=== PATIENT | female | born 1945 | race Two or more races ===

== ENCOUNTER 2025-04-22 05:52 | Inpatient (IN) | payer MEDICARE, OTHER ==
[~2025-04-22] VITALS: Ht 167.6 cm; Wt 50.8 kg
--- NOTE | 2025-04-22 06:01 | ECG ---
[facility] Test Date: 2025-04-22 Test Time: 05:53:00 Pat Name: FIDE BRIDGES Department: [facility] ED Patient ID: [id number] Room: 0249 Gender: F Top Installer: LUISA : 1945 Requested By: EMERGENCY EMERGENCY Order Number: [id number] Reading MD: Brian Chaudhry Measurements Intervals [place] Rate: 64 P: 36 OR: 210 QRS: -47 QRSD: 131 T: 74 QT: 449 QTc: 464 Interpretive Statements Sinus rhythm Left bundle branch block Electronically Signed On 04-25-2025 18:12:43 PDT by Brian Chaudhry Please click the below link to view image of tracing.
--- NOTE | 2025-04-22 06:29 | ED.PDOC ---
GI ASSESSMENT HPI Comments 80 year old female presents to the ED via EMS with a chief complaint of nausea/vomiting onset last night around 22:00. Per EMS, patient began experiencing nausea/vomiting last night around 22:00, as well as abdominal pain and distention. Patient states abdominal pain has slightly improved, was given Zofran 4 mg in route to ED by EMS with no improvement of nausea. PMHx HTN, HLD, GERD, CHF. Denies chest pain, diarrhea, constipation, dizziness, headache, fever, chills, dysuria, hematuria, hematemesis. No other symptoms or modifying factors present at this time. Chief Complaint: Abdominal Pain Time Seen by MD: 06:10 Reviewed Notes: Medications, Allergies Allergies: Coded Allergies: Codeine (Verified Allergy, Unknown, 04/22/25) Information Source: Patient, Emergency Med Personnel Mode of Arrival: EMS Timing: Hours Duration: Since onset Prehospital treatment: Other (Zofran 4mg ) Quality: Sharp Severity: Moderate Recent: None Recent Hx of: None Pain Location: Diffuse Modifying Factors: Nothing Associated sign and symptoms: Nausea, Vomiting, Abdominal Pain Past Medical History PAST MEDICAL HISTORY: CHF, GERD, High Lipids, HTN Surgical History: Appendectomy, Cholecystectomy CRAFT SUPERINTENDENT History: No Pertinent CRAFT SUPERINTENDENT History Family History Family History: Reviewed,noncontributory to illness, No family hx of Cancer, No family hx of DM, No family hx of Heart nicholas, No family hx of HTN, No family hx ofKidney nicholas, No family hx of Liver nicholas, No family hx of Lung nicholas, No family hx of Stroke Social History Smoker: Non-Smoker Alcohol: Denies ETOH Use Drugs: Denies Drug Use Lives In: Home Constitutional: denies: chills, diaphoresis, fatigue, fever, malaise, sweats, weakness, others EENTM: denies: blurred vision, double vision, ear bleeding, ear discharge, ear drainage, ear pain, ear ringing, eye pain, eye redness, hearing loss, mouth pain, mouth swelling, nasal discharge, nose bleeding, nose congestion, nose pain, photophobia, tearing, throat pain, throat swelling, voice changes, others Respiratory: denies: cough, hemoptysis, orthopnea, SOB at rest, shortness of breath, SOB with excertion, stridor, wheezing, others Cardiovascular: denies: chest pain, dizzy spells, diaphoresis, Dyspnea on exertion, edema, irregular heart beat, left arm pain, lightheadedness, palpitations, PND, syncope, others Gastrointestinal: reports: abdomen distended, abdominal pain, nausea, vomiting; denies: blood streaked bowels, constipated, diarrhea, dysphagia, difficulty swallowing, hematemesis, melena, poor appetite, poor fluid intake, rectal bleeding, rectal pain, others Genitourinary: denies: abnormal vagina bleeding, burning, dyspareunia, dysuria, flank pain, frequency, hematuria, incontinence, pain, , vagina discharge, urgency, others Neurological: denies: dizziness, fainting, headache, left sided numbness, left sided weakness, numbness, paresthesia, pre-existing deficit, right sided numbness, right sided weakness, seizure, speech problems, tingling, tremors, weakness, others Musculoskeletal: denies: back pain, gout, joint pain, joint swelling, muscle pain, muscle stiffness, neck pain, others Integumetry: denies: bruises, change in color, change in hair/nails, dryness, laceration, lesions, lumps, rash, wounds, others Allergic/Immunocompromised: denies: Difficulty Healing, Frequent Infections, H noel, Itching, others Hematologic/Lymphatic: denies: anemia, blood clots, easy bleeding, easy bruising, swollen glands, others Endocrine: denies: excessive hunger, excessive sweating, excessive thirst, excessive urination, flushing, intolerance to cold, intolerance to heat, unexplained weight gain, unexplained weight loss, others Psychiatric: denies: anxiety, bipolar disorder, depression, hopeless, panic disorder, schizophrenia, sleepless, suicidal, others All Other Systems: Reviewed and Negative Physical Exam General Appearance: Moderate Distress, Normal HEENT: Normal ENT Inspection, Pharynx Normal, TMs Normal Neck: Full Range of Motion, Non-Tender, Normal, Normal Inspection Respiratory: Chest Non-Tender, Lungs Clear, No Accessory Muscle Use, No Respiratory Distress, Normal Breath Sounds Cardiovascular: No Edema, No JVD, No Murmur, No Gallop, Normal Peripheral Pulses, Regular Rate/Rhythm Breast Exam: Deferred Gastrointestinal: Distended, No Organomegaly, No Pulsatile Mass, Normal Bowel Sounds, Soft Genitalia: Deferred Pelvic: Deferred Rectal: Deferred Extremities: No calf tenderness, Normal capillary refill, Normal inspection, Normal range of motion, Non-tender, No pedal edema Musculoskeletal : Apperance: Normal Neurologic: Alert, executive asst II-XII nml as Tested, No Motor Deficits, Normal Affect, Normal Mood, No Sensory Deficits Cerebellar Function: NOT DONE Reflexes: NOT DONE Skin: Dry, Normal Color, Warm Peripheral Pulses: 3+ Radial (R), 3+ Radial (L) Lymphatic: No Adenopathy Was a procedure done? Was a procedure done?: No GI differential Dx Differential Diagnosis: Constipation, Diverticular disease, Esophagitis, Gastritis/PUD, Gastroenteritis X-Ray, Labs, Meds, VS Vital Signs Date Time Temp Pulse Resp B/P (MAP) Pulse Ox O2 Delivery O2 Flow Rate FiO2 04/22/25 06:36 74 16 /64 04/22/25 05:53 64 04/22/25 05:52 98.5 65 16 98 98.5 Lab Test 04/22/25 06:25 Range/Units Urine Color Dayanara H Yellow Urine Clarity Ex.turbid Clear Urine pH 5.5 5.0-9.0 Urine Specific [place] 1.020 1.001-1.035 Urine Protein 2+ H Negative Urine Ketones Negative Negative Urine Blood 2+ H Negative /uL Urine Nitrite Negative Negative Urine Bilirubin Negative Negative Urine Urobilinogen Normal Negative mg/dL Urine Leukocyte Esterase 2+ Negative /uL Urine RBC 95 0 - 4 /hpf Urine WBC Clumps Present None Seen /hpf Urine Microscopic WBC 2356 H 0-5 /HPF Urine Squamous Epithelial Cells Few <5 /hpf Urine Bacteria Few H None Seen /hpf Urine Glucose Trace Normal mg/dL Current Medications Medications (Trade) Dose Ordered Sig/Candida Route Start Time Stop Time Status Last Admin Ondansetron HCl (Zofran) 4 mg ONCE ONCE IV 04/22/25 06:45 04/22/25 06:46 DC 04/22/25 06:46 Patient alert. Complaining of abdominal pain. Sepsis from urine. Establish intravenous access. Was given fluids. Was given Rocephin. Reviewed her history. Explained to the patient. Continue monitoring. Time of 1ST Reevaluation: 06:40 Reevaluation 1ST: Unchanged Patient Education/Counseling: Diagnosis, Treatment, Prognosis Family Education/Counseling: No Family Present Additional Information The following tests were ordered, and results were reviewed by me: EKG, CBC, UA, BMP Additional Information was gathered from interviewing the following independent historians: EMS I reviewed and agreed with the following test results read by other providers: I discussed treatment and results with medical personnel and: patient Comprehensive systems review obtained and negative except for what is stated in the HPI. SEPSIS Sepsis Screen Date sepsis recognized/suspect: Apr 22, 2025 Time Sepsis recognized/suspect: 0552 Recent Procedure: No On Antibiotic Therapy: No Respiratory Rate >20: No Heart Rate >90: No Temp<36 C (96.8 F) or >38.3 C: No SBP <90 or MAP <65 mmHG: No New Acute Mental Status Change: No Is the patient on CPAP, BIPAP,: No Physician Orders Complete Blood Count (04/22/25 06:31) Basic Metabolic Panel (04/22/25 06:31) Vital Signs Date Time Temp Pulse Resp B/P (MAP) Pulse Ox O2 Delivery O2 Flow Rate FiO2 04/22/25 06:36 74 16 91/64 04/22/25 05:53 64 04/22/25 05:52 98.5 65 16 91/64 98 98.5 Medications Medications Dose Ordered Sig/Candida Route Start Time Stop Time Status Last Admin Dose Admin Ondansetron HCl 4 mg ONCE ONCE IV 04/22/25 06:45 04/22/25 06:46 DC 04/22/25 06:46 Departure 1 Departure Time of Disposition: 07:21 Impression: Primary Impression: Sepsis due to urinary tract infection Disposition: ADMITTED INPATIENT Admit to: Med Surg Condition: Guarded Critical Care Note Critical Care Time?: Yes (90 min-critical care time only) Stability Stability form required: No Heart Score Heart Score: Heart Score Response (Comments) Value History N/A 0 EKG N/A 0 Age N/A 0 Risk Factors N/A 0 Troponin N/A 0 Total 0 I personally scribed for LITA LOPEZ MD ([email or web address]) on 04/22/25 at 06:29. Electronically submitted by Paz Cheung ([email or web address]). I personally scribed for LITA LOPEZ MD ([email or web address]) on 04/22/25 at 07:15. Electronically submitted by Paz Cheung ([email or web address]). LITA LOPEZ MD Apr 22, 2025 06:29
[2025-04-22] MEDS: MORPHINE SULFATE 4 MG/ML SYR/VIAL IV ONE (06:36)
[2025-04-22] MEDS: ONDANSETRON HCL 4 MG/2 ML VIAL IV ONE (06:46)
[2025-04-22 06:55] LABS: Urine Protein, UAD 2+ (Negative); Urine WBC Clumps PRESENT /hpf (None Seen)
[2025-04-22] MEDS: SODIUM CHLORIDE 0.9% 1,000 ML IV ONE ×2 (07:30)
[2025-04-22 08:04] LABS: Anion Gap 10 (5-15); Calcium 10.3 mg/dL (8.7-10.4); Carbon Dioxide 22 mmol/L (20-31); Potassium 4.9 mmol/L (3.5-5.1)
[2025-04-22 08:06] LABS: Hematocrit 37.9 % (36.0-46.0); Hemoglobin 12.6 g/dL (12.2-16.2); Mean Corpuscular Hemoglobin 29.5 pg (28.0-32.0); Mean Corpuscular Volume 88.4 fL (80.0-100.0); Nucleated Red Blood Cells % 0.0 %
[2025-04-22 08:10] LABS: BUN/Creatinine Ratio 13.2 (10.0-20.0); Blood Urea Nitrogen 33 mg/dL (9-23); Chloride 94 mmol/L (98-107); Glucose 236 mg/dL (74-106); Sodium 126 mmol/L (136-145)
--- NOTE | 2025-04-22 08:21 | DVH ---
Exam: CT CT AB PEL WO CON-NO ORAL OR IV History: colitiscystitis Comparison Study: None Technique: Multidetector spiral CT of the abdomen was performed from lung bases to pubic symphysis. I maging was performed without IV contrast. Axial, coronal and sagittal multiplanar reformats were obta ined from the axial data set by the technologist. Radiation Dose : 1. Abdomen/Pelvis: CTDIvol 7.6 mGy, DLP 354.3 mGy*cm. Findings: Evaluation of solid organs is limited due to lack of intravenous contrast use. Lung Bases: No acute or significant lung base finding. Normal heart size. No pleural or pericardial effusion. Liver: The liver is normal in size. No focal lesions. Gallbladder and Biliary Tree: Unremarkable Spleen: Unremarkable Pancreas: The pancreas is grossly normal in appearance. Adrenal Glands: Unremarkable Kidneys: Kidneys are grossly normal without calculi or hydronephrosis. Bladder: Grossly unremarkable for degree of distention. Bowel: Distended stomach. Abnormal nonspecific bowel-gas pattern with severe fluid-filled distention of small-bowel loops. There is a moderate anterior pelvic wall hernia containing bowel. Ascites: Absent Lymphadenopathy: No mesenteric, retroperitoneal or periportal lymphadenopathy. Vasculature: The visualized abdominal aorta is normal in size and caliber. There is extensive athero sclerotic calcification of the aorta and its branches. Evaluation of abdominal and pelvic vessels is limited due to lack of intravenous contrast. Pelvic Organs: Unremarkable Musculoskeletal: No aggressive focal bony lesions, acute fractures or dislocation. Scoliosis. Advanc ed multilevel degenerative changes. IMPRESSION: Limited examination secondary to extensive patient motion artifact. Findings are suspicious for small bowel obstruction with transition point associated with hernia defe ct in the anterior pelvic wall. Surgical consultation advised.
[2025-04-22] MEDS: cefTRIAXone 1GM/50ML D5W 50 ML IV ONE (08:24)
[2025-04-22 09:46] LABS: Lactic Acid w/Reflex 2.5 mmol/L (0.4-2.0)
[2025-04-22] MEDS ORDERED: SODIUM CHLORIDE 0.9% 1,000 ML IV SCH (14:45)
[2025-04-22] MEDS: SODIUM CHLORIDE 0.9% 1,000 ML IV SCH (15:15)
[2025-04-22] MEDS ORDERED: ONDANSETRON HCL 4 MG/2 ML VIAL IV PRN (15:15)
[2025-04-22] MEDS ORDERED: DEXTROSE (50%) 50ML SYRG IV PRN (15:30)
[2025-04-22 15:41] VITALS: PULSE 72; RESP 16; O2SAT 100
[2025-04-22 15:57] LABS: Alanine Aminotransferase 17 U/L (7-40); Albumin 4.3 g/dL (3.2-4.8); Anion Gap 9 (5-15); BUN/Creatinine Ratio 17.4 (10.0-20.0); Calcium 9.2 mg/dL (8.7-10.4); Carbon Dioxide 26 mmol/L (20-31); Total Protein 7.5 g/dL (5.7-8.2)
[2025-04-22 15:58] LABS: Bilirubin, Total 0.4 mg/dL (0.2-1.0)
--- NOTE | 2025-04-22 15:59 | DVHHP2 ---
History of Present Illness Reason for Visit: SBO History of Present Illness History of Present Illness: Ms. Amaya is a 80-year-old female with a past medical history of heart failure, GERD, and hypertension, as well as multiple prior laparotomies for a large ventral hernia. She presented after developing multiple episodes of vomiting starting yesterday around 9:00 PM, followed by a mild episode of diarrhea today. She reports associated abdominal discomfort but denies hematemesis or hematochezia. A CT abdomen/pelvis without contrast showed Distended stomach. Abnormal nonspecific bowel-gas pattern with severe fluid-filled distention of small-bowel loops. There is a moderate anterior pelvic wall hernia containing bowel. Past Medical History: Heart failure Gastroesophageal reflux disease Hypertension DM Past Surgical History: Multiple laparotomies for ventral hernia repair Social History Smoker: Non-Smoker Alcohol: Denies ETOH Use Drugs: Denies Drug Use Lives In: Home Review of Systems Review of Systems Review of Systems: GI: Positive for vomiting, mild diarrhea. : No dysuria, hematuria. Constitutional: No fever or chills reported. Other systems reviewed and negative unless otherwise noted in HPI. Allergies: Coded Allergies: Codeine (Verified Allergy, Unknown, 04/22/25) Medications Current Medications Medications Dose Ordered Sig/Candida Route Start Time Stop Time Status Last Admin Dose Admin Ceftriaxone Sodium 50 ml @ 100 mls/hr DAILY@09 IV 04/23/25 09:00 Metronidazole 100 ml @ 100 mls/hr Q8HR IV 04/22/25 15:16 04/22/25 15:37 100 MLS/HR Sodium Chloride 1,000 ml @ 75 mls/hr [id number] IV 04/22/25 15:15 Ondansetron HCl 4 mg Q6HPRN PRN IV 04/22/25 15:15 Diagnostic Test (Pha) 1 strip Q6HR 04/22/25 18:00 Insulin Human Regular Q6HR SC 04/22/25 18:00 Dextrose 50 ml UD PRN IV 04/22/25 15:30 Exam Vital Signs Vital Signs Date Time Temp Pulse Resp B/P (MAP) Pulse Ox O2 Delivery O2 Flow Rate FiO2 04/22/25 15:41 72 16 100 Room Air* 0 21 04/22/25 13:34 98.2 139/56 (83) 98.2 Exam Physical Exam: General: Elderly female, alert, in mild distress. HEENT: Mucous membranes dry. Cardiac: Regular rate and rhythm, no murmurs. Lungs: Clear to auscultation bilaterally. Abdomen: Distended, tender over ventral hernia site, no peritoneal signs. Large ventral hernia palpable. Extremities: No edema. Neuro: Alert and oriented 3. Labs/Xrays Labs Test 04/22/25 15:28 04/22/25 11:45 04/22/25 07:15 04/22/25 06:25 Range/Units Lactic Acid Level 1.2 0.4-2.0 mmol/L White Blood Count 9.8 4.4-10.8 10^3/uL Red Blood Count 4.28 4.0-5.20 10^6/uL Hemoglobin 12.6 12.2-16.2 g/dL Hematocrit 37.9 36.0-46.0 % Mean Corpuscular Volume 88.4 80.0-100.0 fL Mean Corpuscular Hemoglobin 29.5 28.0-32.0 pg Mean Corpuscular Hemoglobin Concent 33.3 32.0-36.0 g/dL Red Cell Distribution Width 18.3 H 11.8-14.3 % Platelet Count 153 140-450 10^3/uL Mean Platelet Volume 9.0 6.9-10.8 fL Neutrophils (%) (Auto) 82.0 H 37.0-80.0 % Lymphocytes (%) (Auto) 11.4 10.0-50.0 % Monocytes (%) (Auto) 5.7 0.0-12.0 % Eosinophils (%) (Auto) 0.7 0.0-7.0 % Basophils (%) (Auto) 0.2 0.0-2.0 % Neutrophils # (Auto) 8.0 1.6-8.6 10 ^3/uL Lymphocytes # (Auto) 1.1 0.4-5.4 10 ^3/uL Monocytes # (Auto) 0.6 0-1.3 10 ^3/uL Eosinophils # (Auto) 0.1 0-0.8 10 ^3/uL Basophils # (Auto) 0 0-0.2 10 ^3/uL Nucleated Red Blood Cells 0.0 % Hemoglobin A1c 8.2 H <5.7 % A1C Urine Color Dayanara H Yellow Urine Clarity Ex.turbid Clear Urine pH 5.5 5.0-9.0 Urine Specific [place] 1.020 1.001-1.035 Urine Protein 2+ H Negative Urine Ketones Negative Negative Urine Blood 2+ H Negative /uL Urine Nitrite Negative Negative Urine Bilirubin Negative Negative Urine Urobilinogen Normal Negative mg/dL Urine Leukocyte Esterase 2+ Negative /uL Urine RBC 95 0 - 4 /hpf Urine WBC Clumps Present None Seen /hpf Urine Microscopic WBC 2356 H 0-5 /HPF Urine Squamous Epithelial Cells Few <5 /hpf Urine Bacteria Few H None Seen /hpf Urine Glucose Trace Normal mg/dL SEPSIS Sepsis Screen Date sepsis recognized/suspect: Apr 22, 2025 Time Sepsis recognized/suspect: 642 Recent Procedure: No On Antibiotic Therapy: No Respiratory Rate >20: No Heart Rate >90: No Temp<36 C (96.8 F) or >38.3 C: No SBP <90 or MAP <65 mmHG: No New Acute Mental Status Change: No Is the patient on CPAP, BIPAP,: No Physician Orders Admit (04/22/25 14:43) Code Status (04/22/25 14:43) Vital Signs .PER UNIT PROTOCOL (04/22/25 14:43) Review Orders With Adm.Md (04/22/25 14:43) Npo (Nothing By Mouth) Diet (04/22/25 Dinner) Notify Md Of Changes From Base (04/22/25 14:43) Advance Directive (04/22/25 14:43) Patient Condition (04/22/25 14:43) Allergies (04/22/25 14:43) * Surgical Consult (04/22/25 ) Ceftriaxone 1gm/50ml D5w (Rocephin) (04/23/25 09:00) Metronidazole 500mg/100ml (Flagyl 500mg/ (04/22/25 15:16) Ondansetron Hcl (Zofran) (04/22/25 15:15) Sodium Chloride 0.9% (04/22/25 15:15) Comprehensive Metabolic Panel (04/22/25 15:08) B-Type Natriuretic Peptide (04/22/25 15:17) Echo 2d Mode Cardiac Dop (04/22/25 15:17) Glucose Blood (Accu-Chek Comfort Curve T (04/22/25 18:00) Insulin R (Human) (Insulin R) (04/22/25 18:00) Dextrose 50% Syringe (04/22/25 15:30) Ngt/Ogt (04/22/25 ) Vital Signs Date Time Temp Pulse Resp B/P (MAP) Pulse Ox O2 Delivery O2 Flow Rate FiO2 04/22/25 15:41 72 16 100 Room Air* 0 21 04/22/25 13:34 98.2 69 14 139/56 (83) 100 98.2 04/22/25 11:25 97.5 66 14 141/57 (85) 100 97.5 Laboratory Tests Test 04/22/25 07:15 04/22/25 08:50 04/22/25 11:45 White Blood Count 9.8 10^3/uL (4.4-10.8) Lactic Acid Level 2.5 mmol/L (0.4-2.0) *H 1.2 mmol/L (0.4-2.0) Medications Medications Dose Ordered Sig/Candida Route Start Time Stop Time Status Last Admin Dose Admin Ceftriaxone Sodium 50 ml @ 100 mls/hr ONCE ONCE IV 04/22/25 07:30 04/22/25 07:59 DC 04/22/25 08:24 100 MLS/HR Metronidazole 100 ml @ 100 mls/hr ONCE ONCE IV 04/22/25 07:30 04/22/25 08:29 DC 04/22/25 08:24 100 MLS/HR Metronidazole 100 ml @ 100 mls/hr Q8HR IV 04/22/25 15:16 04/22/25 15:37 100 MLS/HR Ondansetron HCl 4 mg ONCE ONCE IV 04/22/25 06:45 04/22/25 06:46 DC 04/22/25 06:46 4 MG Sodium Chloride 1,000 ml @ 150 mls/hr Q6H40M ONCE IV 04/22/25 07:30 04/22/25 14:09 DC 04/22/25 07:30 150 MLS/HR Assessment/Plan Assessment/Plan #SBO #ventral hernia #sp multiple laparotomies #Dehydration #Hyponatremia #MACARENA possible VMN #DM #Complicated UTI #Heart failure, stable #GERD #HLD Admit Med surg NPO Surgery consulted: case discussed with Dr Eliana Bianchi NS 75cc/h NGT Ceftriaxone and metronidazole ISS, mild for NPO Pending ECHO, hba1c Case discussed with Dr Castellon Full code No DVT prophylaxis if surgery is needed Plan discussed with: Patient, Daughter My Orders Orders - AZEEM JOE Procedure Category Date Status Time Admit ADMIT 04/22/25 Transmitted 14:43 Code Status CODE 04/22/25 Transmitted 14:43 Vital Signs ROSENDO 04/22/25 In Process 14:43 Review Orders With [facility] 04/22/25 In Process Adm. 14:43 Npo (Nothing By DIET 04/22/25 Transmitted Mouth) Diet Dinner Notify Md Of Changes ROSENDO 04/22/25 In Process From Base 14:43 Advance Directive ROSENDO 04/22/25 In Process 14:43 Patient Condition ORDERS 04/22/25 Transmitted 14:43 Allergies ROSENDO 04/22/25 In Process 14:43 * Surgical Consult CONS 04/22/25 Transmitted Ceftriaxone 1gm/50ml PHA 04/23/25 In Process D5w (Rocephin) 09:00 Metronidazole PHA 04/22/25 In Process 500mg/100ml (Flagyl 15:16 Ondansetron Hcl PHA 04/22/25 In Process (Zofran) 15:15 Sodium Chloride 0.9% PHA 04/22/25 In Process 15:15 Comprehensive LAB 04/22/25 In Process Metabolic Panel 15:08 B-Type Natriuretic LAB 04/22/25 In Process Peptide 15:17 Echo 2d Mode Cardiac US 04/22/25 Logged DOP 15:17 Glucose Blood PHA 04/22/25 In Process (Accu-Chek Comfort 18:00 Insulin R (Human) PHA 04/22/25 In Process (Insulin R) 18:00 Dextrose 50% Syringe PHA 04/22/25 In Process 15:30 Ngt/Ogt ED NURSING 04/22/25 Transmitted Date of Service: Apr 22, 2025 Billing Provider: CALVIN BURNHAM MD Common Visit Codes: 15310-[id number] INP/OBS CARE (HIGH) AZEEM JOE Apr 22, 2025 15:59
[2025-04-22 16:02] LABS: Alkaline Phosphatase 128 U/L (46-116); Blood Urea Nitrogen 36 mg/dL (9-23); Chloride 98 mmol/L (98-107); Glucose 160 mg/dL (74-106); Potassium 4.9 mmol/L (3.5-5.1); Sodium 133 mmol/L (136-145)
[2025-04-22] MEDS: PANTOPRAZOLE 40 MG/10 ML VIAL INJ IV SCH (17:16)
[2025-04-22 17:18] VITALS: BP 155/63; PULSE 74; RESP 20; TEMP 97.8; O2SAT 96
[2025-04-22] MEDS: InsuLIN REG 1unit/0.01ml Soln (100units/ml) SC SCH (17:51)
[2025-04-22] MEDS: ACCU-CHEK COMFORT CURVE STRIP VI SCH (17:51)
[2025-04-22 20:00] VITALS: PULSE 76; RESP 16; O2SAT 98
[2025-04-22 21:00] VITALS: BP 110/56; PULSE 76; RESP 16; TEMP 99; O2SAT 98
--- NOTE | 2025-04-22 21:46 | DVHINCON2 ---
Date of service: Apr 22, 2025 Family History: Arthritis G8 FATHER Diabetes mellitus G8 MOTHER Hypertension G8 MOTHER Allergies: Coded Allergies: Codeine (Verified Allergy, Unknown, 04/22/25) Current Medications Current Medications Medications (Trade) Dose Ordered Sig/Candida Route PRN Reason Start Time Stop Time Status Last Admin Sodium Chloride 1,000 ml @ 60 mls/hr [id number] IV 04/22/25 14:45 04/22/25 15:08 DC Ceftriaxone Sodium 50 ml @ 100 mls/hr DAILY@09 IV 04/23/25 09:00 Metronidazole 100 ml @ 100 mls/hr Q8HR IV 04/22/25 15:16 04/22/25 21:10 Sodium Chloride 1,000 ml @ 75 mls/hr [id number] IV 04/22/25 15:15 Ondansetron HCl (Zofran) 4 mg Q6HPRN PRN IV NAUSEA / VOMITING 04/22/25 15:15 Diagnostic Test (Pha) (Accu-Chek Comfort Curve T) 1 strip Q6HR 04/22/25 18:00 04/22/25 21:11 Insulin Human Regular (InsuLIN R) Q6HR SC 04/22/25 18:00 Dextrose 50 ml UD PRN IV Blood Sugar LESS THAN 60 04/22/25 15:30 Pantoprazole Sodium (Protonix) 40 mg DAILY IV 04/22/25 16:15 04/22/25 17:16 Vital Signs Vital Signs Date Time Temp Pulse Resp B/P (MAP) Pulse Ox O2 Delivery O2 Flow Rate FiO2 04/22/25 20:00 76 16 98 Room Air* 0 21 04/22/25 17:18 97.8 155/63 (93) 97.8 Labs/Diagnostic Data Labs Test 04/22/25 17:48 04/22/25 15:28 04/22/25 11:45 04/22/25 07:15 Range/Units POC Glucose 153 H 70-106 mg/dl Sodium Level 133 #L 136-145 mmol/L Potassium Level 4.9 3.5-5.1 mmol/L Chloride Level 98 98-107 mmol/L Carbon Dioxide Level 26 20-31 mmol/L Anion Gap 9 5-15 Blood Urea Nitrogen 36 H 9-23 mg/dL Creatinine 2.07 H 0.550-1.02 mg/dL Glomerular Filtration Rate Calc 24 >90 mL/min BUN/Creatinine Ratio 17.4 10.0-20.0 Serum Glucose 160 H 74-106 mg/dL Calcium Level 9.2 8.7-10.4 mg/dL Total Bilirubin 0.4 0.2-1.0 mg/dL Aspartate Amino Transferase (AST) 28 13-40 U/L Alanine Aminotransferase (ALT) 17 7-40 U/L Alkaline Phosphatase 128 H 46-116 U/L Total Protein 7.5 5.7-8.2 g/dL Albumin 4.3 3.2-4.8 g/dL Lactic Acid Level 1.2 0.4-2.0 mmol/L White Blood Count 9.8 4.4-10.8 10^3/uL Red Blood Count 4.28 4.0-5.20 10^6/uL Hemoglobin 12.6 12.2-16.2 g/dL Hematocrit 37.9 36.0-46.0 % Mean Corpuscular Volume 88.4 80.0-100.0 fL Mean Corpuscular Hemoglobin 29.5 28.0-32.0 pg Mean Corpuscular Hemoglobin Concent 33.3 32.0-36.0 g/dL Red Cell Distribution Width 18.3 H 11.8-14.3 % Platelet Count 153 140-450 10^3/uL Mean Platelet Volume 9.0 6.9-10.8 fL Neutrophils (%) (Auto) 82.0 H 37.0-80.0 % Lymphocytes (%) (Auto) 11.4 10.0-50.0 % Monocytes (%) (Auto) 5.7 0.0-12.0 % Eosinophils (%) (Auto) 0.7 0.0-7.0 % Basophils (%) (Auto) 0.2 0.0-2.0 % Neutrophils # (Auto) 8.0 1.6-8.6 10 ^3/uL Lymphocytes # (Auto) 1.1 0.4-5.4 10 ^3/uL Monocytes # (Auto) 0.6 0-1.3 10 ^3/uL Eosinophils # (Auto) 0.1 0-0.8 10 ^3/uL Basophils # (Auto) 0 0-0.2 10 ^3/uL Nucleated Red Blood Cells 0.0 % Hemoglobin A1c 8.2 H <5.7 % A1C B-Type Natriuretic Peptide 417.97 0-100 pg/mL Test 04/22/25 06:25 Range/Units Urine Color Dayan[place] H Yellow Urine Clarity Ex.turbid Clear Urine pH 5.5 5.0-9.0 Urine Specific [place] 1.020 1.001-1.035 Urine Protein 2+ H Negative Urine Ketones Negative Negative Urine Blood 2+ H Negative /uL Urine Nitrite Negative Negative Urine Bilirubin Negative Negative Urine Urobilinogen Normal Negative mg/dL Urine Leukocyte Esterase 2+ Negative /uL Urine RBC 95 0 - 4 /hpf Urine WBC Clumps Present None Seen /hpf Urine Microscopic WBC 2356 H 0-5 /HPF Urine Squamous Epithelial Cells Few <5 /hpf Urine Bacteria Few H None Seen /hpf Urine Glucose Trace Normal mg/dL Assessment [id number] DENIES ABD PAIN NO N/V BM + ABD SOFT REDUCIBLE COMPLICATED POST INCISIONAL VENTRAL HERNIA NOT AN ACUTE ABD CLOSE OBSERVATION CONSIDER EMERGENT SURGERY BASED ON ONGOING EVAL CONSIDER GASTROGRAFIN STUDY TO R/O SBO Plan discussed with: Other KIMBERLEE DUNNE MD Apr 22, 2025 21:46
--- NOTE | 2025-04-22 22:07 | DVHINCON2 ---
DATE OF CONSULTATION: 04/22/2025 HISTORY OF PRESENT ILLNESS: The patient is 80 years old, complaining of abdominal pain, now feeling better. No nausea or vomiting. She had a bowel movement and she has no hematuria, melena, no bleeding per rectum, no fever or chills. PAST MEDICAL HISTORY: Heart failure, GERD, hypertension. PAST SURGICAL HISTORY: Has multiple laparotomies for large ventral hernia. PHYSICAL EXAMINATION: VITAL SIGNS: She is afebrile. Stable signs. HEENT: With no evidence of pallor, cyanosis, or jaundice. NECK: Supple and nontender with no thyromegaly or lymphadenopathy. CHEST AND LUNGS: Clear. HEART: Within normal limits. ABDOMEN: Soft. She does have a complicated reducible post-incisional ventral hernia and with the possibility of an ileus or partial small bowel obstruction. At this point, she does not have any acute abdomen or incarcerated or strangulated ventral hernia. NEUROLOGIC: Not assessed. EXTREMITIES: Unremarkable. CLINICAL IMPRESSION: Reducible post-incisional, uncomplicated ventral hernia, recurrent. PLAN: Plan would be to keep under close observation, consider Gastrografin studies, small bowel follow-through to rule out bowel obstruction and then consider elective ventral hernia surgery based upon ongoing evaluation. MD DYLAN Bledsoe/VISHAL TID: [id number] RECEIPT: [id number] cc: AZEEM PAREDES
[2025-04-23] VITALS (8 sets, daily range): BP systolic 98–177; BP diastolic 53–105; PULSE 70–99; RESP 16–18; TEMP 97.2–98.4; O2SAT 97–100
[2025-04-23] MEDS: cefTRIAXone 1GM/50ML D5W 50 ML IV SCH (08:44)
--- NOTE | 2025-04-23 12:08 | DVHSR ---
APPROVED REPORT EXAM: Two-dimensional and M-mode echocardiogram with Doppler and color Doppler. Blood Pressure: 117/53 mmHg INDICATION CHF RISK FACTORS Height: 5'6", Weight: 111 DIMENSIONS LVDd5.5 (3.8-5.7cm)LA (2D)4.2 (1.9-4.0cm)Aortic Root3.1 (2.0-3.7cm) LVDs5.0 (2.5-4.0cm)LA (MM) (1.9-4.0cm)Aortic Cusp Exc0.6 (1.5-2.0cm) EF (%) 20.0 (55-70%)Rt. Atrium4.0 (1.9-4.0cm)Asc. Aorta cm IVSd0.8 (0.7-1.1cm)RV (D) (1.8-2.4cm) PWd0.9 (0.7-1.1cm) Mitral Valve MitralMitral Stenosis E wave1.14m/sMV Mean GR.3mmHg A wave1.41m/sMV Peak GR.8mmHg E/A ratio0.82D MVAcm2 DECEL [id number] 1/2 Hime15ax IVRTmsDop MVA4.14cm2 Aortic Valve Aortic ValveAortic Stenosis V10.74m/Yaz Mean GR.16mmHg V22.61m/Yaz Peak GR.27mmHg LVOT Diameter2.2 (1.8-2.4cm)Doppler AVA1.08cm2 Pulmonic Valve V21.12m/s Tricuspid Valve TR Velocity3.12m/s [id number] Conclusion lvef 30% by visual estimate dilated LV severe dysfunction moderate (could be worse low flow )gradient of 17 mmhg mild aortic regurg moderate to severe Mitral regurg mild mitral stneoiss mean of 3 mmhg
[2025-04-23] MEDS: GASTROGRAFIN 120 ML SOL ONE (14:05)
--- NOTE | 2025-04-23 16:16 | DVHPN2 ---
Subjective I am assuming the care of the patient from today onwards. Patient is currently getting Gastrografin small bowel series. Complaining of severe anxiety. Changes from previous H/P or p: No Changes Objective Vitals Vital Signs Date Time Temp Pulse Resp B/P (MAP) Pulse Ox O2 Delivery O2 Flow Rate FiO2 04/23/25 08:30 97.8 75 16 145/73 (97) 98 97.8 04/23/25 08:00 Room Air* 0 21 Intake/Output Intake and Output 04/23/25 07:00 Intake Total 900 ml Balance 900 ml Intake Oral 0 ml IV Total 900 ml # Voids 3 Exam HEENT pupils are reactive Neck is supple CV is S1-S2 regular rate and rhythm Respiratory diminished breath sounds bases GI positive bowel sound Extremity no edema COLOR DIPPER no motor deficit Medications Current Medications Medications Dose Ordered Sig/Candida Route Start Time Stop Time Status Last Admin Dose Admin Ceftriaxone Sodium 50 ml @ 100 mls/hr DAILY@09 IV 04/23/25 09:00 04/23/25 08:44 100 MLS/HR Metronidazole 100 ml @ 100 mls/hr Q8HR IV 04/22/25 15:16 04/23/25 15:32 100 MLS/HR Sodium Chloride 1,000 ml @ 75 mls/hr [id number] IV 04/22/25 15:15 04/23/25 04:17 75 MLS/HR Ondansetron HCl 4 mg Q6HPRN PRN IV 04/22/25 15:15 Diagnostic Test (Pha) 1 strip Q6HR 04/22/25 18:00 04/23/25 11:10 1 STRIP Insulin Human Regular Q6HR SC 04/22/25 18:00 Dextrose 50 ml UD PRN IV 04/22/25 15:30 Pantoprazole Sodium 40 mg DAILY IV 04/22/25 16:15 04/23/25 11:05 40 MG Hydralazine HCl 10 mg Q6HP PRN IV 04/23/25 16:15 UNV Laboratory Results Laboratory Tests 04/22/25 07:15 04/22/25 15:28 Urinalysis Test 04/22/25 06:25 Urine Color Dayanara (Yellow) H Urine Clarity Ex.turbid (Clear) Urine pH 5.5 (5.0-9.0) Urine Specific [place] 1.020 (1.001-1.035) Urine Protein 2+ (Negative) H Urine Ketones Negative (Negative) Urine Blood 2+ /uL (Negative) H Urine Nitrite Negative (Negative) Urine Bilirubin Negative (Negative) Urine Urobilinogen Normal mg/dL (Negative) Urine Leukocyte Esterase 2+ /uL (Negative) Urine RBC 95 /hpf (0 - 4) Urine WBC Clumps Present /hpf (None Seen) Urine Microscopic WBC 2356 /HPF (0-5) H Urine Squamous Epithelial Cells Few /hpf (<5) Urine Bacteria Few /hpf (None Seen) H Urine Glucose Trace mg/dL (Normal) Microbiology Microbiology Date/Time Source Procedure Growth Status 04/22/25 09:25 Blood Blood Culture - Preliminary NO GROWTH AFTER 24 HOURS OF INCUBATION. Resulted 04/22/25 06:25 Voided Urine Urine Culture - Preliminary Resulted Assessment/Plan Assessment/Plan 80-year-old female with a known history of congestive heart failure with systolic dysfunction, cardiomyopathy with EF of 30%, aortic stenosis, [id number]-[id number] mitral regurgitation who initially presented to the hospital with the abdominal pain nausea and vomiting found to have 1. Small-bowel obstruction 2. Abdominal pain nausea and vomiting secondary to 1. 3. Abdominal wall hernia in the pelvic region. 4. Congestive heart failure with systolic dysfunction currently compensated 5. Cardiomyopathy with EF of 30% 6. Ctyyhbho-nl-mknqke mitral regurgitation. 7. Moderate aortic stenosis 8. Hypertension uncontrolled. 9. Peripheral neuropathy 10. Anxiety disorder -follow up small bowel series follow up General surgery recommendation -resume home medication . -physical therapy evaluation and treatment. Plan discussed with: Patient, Other My Orders Orders - DIANA ALMENDAREZ MD Procedure Category Date Status Time Hydralazine Injection PHA 04/23/25 Logged (Apresoline Inject 16:15 Date of Service: Apr 23, 2025 Billing Provider: DIANA ALMENDAREZ MD Common Visit Codes: [id number] INP/OBS CARE(MOD) DIANA ALMENDAREZ MD Apr 23, 2025 16:16
[2025-04-23] MEDS: hydrALAZINE HCL 20 MG/ML VL IV PRN (16:19)
[2025-04-23] MEDS ORDERED: METO25TA5 PO (16:35)
[2025-04-23] MEDS ORDERED: EMPA1TAB3 PO (16:35)
[2025-04-23] MEDS ORDERED: POTA-36 PO (16:35)
[2025-04-23] MEDS ORDERED: AMLO1TAB22 PO (16:35)
[2025-04-23] MEDS ORDERED: LISI20TA56 PO (16:35)
[2025-04-23] MEDS ORDERED: ALPR0.254 PO (16:35)
[2025-04-23] MEDS ORDERED: OMEP20TA PO (16:35)
[2025-04-23] MEDS ORDERED: ASPI81CH49 PO (16:35)
[2025-04-23] MEDS ORDERED: ATOR-507 PO (16:35)
[2025-04-23] MEDS ORDERED: GABA-1308 PO (16:35)
[2025-04-23] MEDS ORDERED: FURO1TAB33 PO (16:35)
[2025-04-23] MEDS: FUROSEMIDE 20 MG TAB PO ONE (17:03)
[2025-04-23] MEDS: ALPRAZolam 0.25 MG TAB PO ONE (18:18)
--- NOTE | 2025-04-23 19:20 | DVH ---
Procedure: XY SMALL BOWEL SERIES-W GASTROGRA Reason for study/Clinical History: RULE OUT SBO Comparison Study: None Technique: Single contrast small bowel series performed. FINDINGS/IMPRESSION: Initial warehouse puller view of the abdomen and pelvis appears demonstrates no acute process. Contrast is identified within the colon by 4 hours. Image taken at 1:00 a.m.: Not opacified. Next im age depth 4 hours.: Opacified. Normal would be if an image showed opacification of the colon at 3:00 a.m..
[2025-04-23] MEDS: METOPROLOL TARTRATE 25 MG TAB PO SCH (22:00)
[2025-04-23] MEDS: ATORVASTATIN 20 MG TAB PO SCH (22:27)
[2025-04-23] MEDS: GABAPENTIN 100 MG CAP PO SCH (22:27)
[2025-04-24] VITALS (8 sets, daily range): BP systolic 126–163; BP diastolic 69–87; PULSE 64–91; RESP 14–20; TEMP 97.6–98.3; O2SAT 90–99
[2025-04-24] MEDS ORDERED: ALPRAZolam 0.25 MG TAB PO PRN (05:00)
--- NOTE | 2025-04-24 12:24 | DVHPN2 ---
Subjective Patient's Gastrografin series has been little slow transit time otherwise no bowel seven. Pain currently tolerating clear liquid diet and requesting more food. Changes from previous H/P or p: No Changes Objective Vitals Vital Signs Date Time Temp Pulse Resp B/P (MAP) Pulse Ox O2 Delivery O2 Flow Rate FiO2 04/24/25 09:15 98.3 86 14 159/79 (105) 99 98.3 04/23/25 20:00 Room Air* 0 21 Intake/Output Intake and Output 04/24/25 07:00 Intake Total 350 ml Output Total 2100 ml Balance -1750 ml Intake Oral 0 ml IV Total 350 ml Output Stool Total 1600 ml Urine/Stool Mix 500 ml # Voids 3 Exam HEENT pupils are reactive Neck is supple CV is S1-S2 regular rate and rhythm Respiratory diminished breath sounds bases GI positive bowel sound Extremity no edema [employer]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 motor deficit Medications Current Medications Medications Dose Ordered Sig/Candida Route Start Time Stop Time Status Last Admin Dose Admin Ceftriaxone Sodium 50 ml @ 100 mls/hr DAILY@09 IV 04/23/25 09:00 04/24/25 10:51 100 MLS/HR Metronidazole 100 ml @ 100 mls/hr Q8HR IV 04/22/25 15:16 04/24/25 05:26 100 MLS/HR Sodium Chloride 1,000 ml @ 75 mls/hr [id number] IV 04/22/25 15:15 04/23/25 04:17 75 MLS/HR Ondansetron HCl 4 mg Q6HPRN PRN IV 04/22/25 15:15 Diagnostic Test (Pha) 1 strip Q6HR 04/22/25 18:00 04/24/25 06:11 1 STRIP Insulin Human Regular Q6HR SC 04/22/25 18:00 Dextrose 50 ml UD PRN IV 04/22/25 15:30 Pantoprazole Sodium 40 mg DAILY IV 04/22/25 16:15 04/24/25 10:51 40 MG Hydralazine HCl 10 mg Q6HP PRN IV 04/23/25 16:15 04/23/25 16:19 10 MG Gabapentin 200 mg TID PO 04/23/25 22:00 04/24/25 05:26 200 MG Alprazolam 0.25 mg BID PRN PO 04/24/25 05:00 Metoprolol Tartrate 25 mg BID PO 04/23/25 22:00 Aspirin 81 mg DAILY PO 04/24/25 10:00 Lisinopril 20 mg DAILY PO 04/24/25 10:00 Amlodipine Besylate 5 mg DAILY PO 04/24/25 10:00 Atorvastatin Calcium 40 mg HS PO 04/23/25 22:00 04/23/25 22:27 40 MG Furosemide 20 mg DAILY PO 04/24/25 10:00 Laboratory Results Laboratory Tests 04/22/25 07:15 04/22/25 15:28 Urinalysis Test 04/22/25 06:25 Urine Color Dayanara (Yellow) H Urine Clarity Ex.turbid (Clear) Urine pH 5.5 (5.0-9.0) Urine Specific [place] 1.020 (1.001-1.035) Urine Protein 2+ (Negative) H Urine Ketones Negative (Negative) Urine Blood 2+ /uL (Negative) H Urine Nitrite Negative (Negative) Urine Bilirubin Negative (Negative) Urine Urobilinogen Normal mg/dL (Negative) Urine Leukocyte Esterase 2+ /uL (Negative) Urine RBC 95 /hpf (0 - 4) Urine WBC Clumps Present /hpf (None Seen) Urine Microscopic WBC 2356 /HPF (0-5) H Urine Squamous Epithelial Cells Few /hpf (<5) Urine Bacteria Few /hpf (None Seen) H Urine Glucose Trace mg/dL (Normal) Microbiology Microbiology Date/Time Source Procedure Growth Status 04/22/25 09:25 Blood Blood Culture - Preliminary NO GROWTH AFTER 48 HOURS OF INCUBATION. Resulted 04/22/25 06:25 Voided Urine Urine Culture - Final Complete Assessment/Plan Assessment/Plan 80-year-old female with a known history of congestive heart failure with systolic dysfunction, cardiomyopathy with EF of 30%, aortic stenosis, kmqtysqt-[id number] mitral regurgitation who initially presented to the hospital with the abdominal pain nausea and vomiting found to have 1. Small-bowel obstruction, resolved 2. Abdominal pain nausea and vomiting secondary to 1. Improved 3. Abdominal wall hernia in the pelvic region. 4. Congestive heart failure with systolic dysfunction currently compensated 5. Cardiomyopathy with EF of 30% 6. Cvmlqnld-gb-wzurwx mitral regurgitation. 7. Moderate aortic stenosis 8. Hypertension uncontrolled. 9. Peripheral neuropathy 10. Anxiety disorder -advanced diet as tolerated -resume home medication . -physical therapy evaluation and treatment. -discharge plan. Plan discussed with: Patient My Orders Orders - DIANA ALMENDAREZ MD Procedure Category Date Status Time Hydralazine Injection PHA 04/23/25 In Process (Apresoline Inject 16:15 Metoprolol Tartrate PHA 04/23/25 In Process Tablet (Lopressor Ta 22:00 Aspirin Tablet PHA 04/24/25 In Process 10:00 Lisinopril Tablet PHA 04/24/25 In Process (Zestril Tablet) 10:00 Amlodipine Tablet PHA 04/24/25 In Process (Norvasc Tablet) 10:00 Atorvastatin (Lipitor) PHA 04/23/25 In Process 22:00 Alprazolam Tablet PHA 04/24/25 In Process (Xanax Tablet) 05:00 Furosemide Tablet PHA 04/24/25 In Process (Lasix Tablet) 10:00 Gabapentin Capsule PHA 04/23/25 In Process (Neurontin Capsule) 22:00 Pharmacy [facility] 04/23/25 In Process Clarification: 17:03 Clear Liq Diet DIET 04/24/25 Transmitted Lunch Date of Service: Apr 24, 2025 Billing Provider: DIANA ALMENDAREZ MD Common Visit Codes: [id number] INP/OBS CARE(MOD) DIANA ALMENDAREZ MD Apr 24, 2025 12:24
[2025-04-24] MEDS: LISINOPRIL 20 MG TAB PO SCH (13:27)
[2025-04-24] MEDS: FUROSEMIDE 20 MG TAB PO SCH (13:29)
--- NOTE | 2025-04-24 18:20 | DVHPN2 ---
Progress Note Date Seen: Apr 24, 2025 Medical Necessity Reason Pt with a Central, PICC or Fol: No Objective vital signs Vital Sign Date Time Temp Pulse Resp B/P (MAP) Pulse Ox O2 Delivery O2 Flow Rate FiO2 04/24/25 17:08 98.2 67 16 144/69 (94) 98 98.2 04/24/25 08:20 Room Air* 0 21 Total Intake and Output 04/23/25 04/23/25 04/24/25 15:00 23:00 07:00 Intake Total 50 ml 100 ml 200 ml Output Total 2100 ml Balance 50 ml 100 ml -1900 ml medications Current Medications Medications Dose Ordered Sig/Candida Route Start Time Stop Time Status Last Admin Dose Admin Ceftriaxone Sodium 50 ml @ 100 mls/hr DAILY@09 IV 04/23/25 09:00 04/24/25 10:51 100 MLS/HR Metronidazole 100 ml @ 100 mls/hr Q8HR IV 04/22/25 15:16 04/24/25 13:50 100 MLS/HR Sodium Chloride 1,000 ml @ 75 mls/hr [id number] IV 04/22/25 15:15 04/23/25 04:17 75 MLS/HR Ondansetron HCl 4 mg Q6HPRN PRN IV 04/22/25 15:15 Diagnostic Test (Pha) 1 strip Q6HR 04/22/25 18:00 04/24/25 12:31 1 STRIP Insulin Human Regular Q6HR SC 04/22/25 18:00 Dextrose 50 ml UD PRN IV 04/22/25 15:30 Pantoprazole Sodium 40 mg DAILY IV 04/22/25 16:15 04/24/25 10:51 40 MG Hydralazine HCl 10 mg Q6HP PRN IV 04/23/25 16:15 04/23/25 16:19 10 MG Gabapentin 200 mg TID PO 04/23/25 22:00 04/24/25 13:50 200 MG Alprazolam 0.25 mg BID PRN PO 04/24/25 05:00 Metoprolol Tartrate 25 mg BID PO 04/23/25 22:00 04/24/25 13:27 25 MG Aspirin 81 mg DAILY PO 04/24/25 10:00 04/24/25 13:28 81 MG Lisinopril 20 mg DAILY PO 04/24/25 10:00 04/24/25 13:27 20 MG Amlodipine Besylate 5 mg DAILY PO 04/24/25 10:00 04/24/25 13:28 5 MG Atorvastatin Calcium 40 mg HS PO 04/23/25 22:00 04/23/25 22:27 40 MG Furosemide 20 mg DAILY PO 04/24/25 10:00 04/24/25 13:29 20 MG laboratory and microbiology Laboratory Tests 04/22/25 15:28 04/22/25 07:15 Test 04/22/25 15:28 Range/Units Serum Glucose 160 H 74-106 mg/dL Microbiology Date/Time Source Procedure Growth Status 04/22/25 09:25 Blood Blood Culture - Preliminary NO GROWTH AFTER 48 HOURS OF INCUBATION. Resulted 04/22/25 06:25 Voided Urine Urine Culture - Final Complete Problem List/Assessment/Plan Problem List/Assessment/Plan AFEBRILE VSS ABD SOFT REDUCIBLE VENTRAL HERNIA SBO RESOLVED ADVANCE DIET MARTY CONSIDER ELECTIVE/EMERGENT VENTRAL HERNIA SURGERY BASED ON ONGOING EVAL Plan discussed with: Patient Dietary Evaluation Review Comments: 1) If patient remains NPO > 7 days, consider EN/TPN to meet at least 75% of estimated daily needs 2) Advance to 60g CCHO low residue cardiac diet when medically feasible 3) Refer to outpatient RD/[facility] for diabetes education 4) Follow-up with gastroenterology, cardiology, and nephrology 5) Continue to monitor I&O, labs, and skin integrity Expected Outcomes/Goals: 1) If patient remains NPO > 7 days, consider EN/TPN to meet at least 75% of estimated daily needs 2) Advance to 60g CCHO low residue cardiac diet when medically feasible 3) Refer to outpatient RD/[facility] for diabetes education 4) Follow-up with gastroenterology, cardiology, and nephrology 5) Continue to monitor I&O, labs, and skin integrity KIMBERLEE DUNNE MD Apr 24, 2025 18:20
[2025-04-25 01:00] VITALS: BP 113/48; PULSE 59; RESP 18; TEMP 97.3; O2SAT 97
[2025-04-25 05:00] VITALS: BP_SYST 112; BP_SYST 115; BP_DIAS 50; BP_DIAS 69; PULSE 53; PULSE 60; RESP 18; RESP 19; TEMP 98; O2SAT 93
[2025-04-25 08:20] VITALS: PULSE 70; RESP 18; O2SAT 100
[2025-04-25 09:00] VITALS: BP 132/68; PULSE 70; RESP 18; TEMP 97.5; O2SAT 100
[2025-04-25 12:43] LABS: Hematocrit 36.7 % (36.0-46.0); Hemoglobin 12.2 g/dL (12.2-16.2); Mean Corpuscular Hemoglobin 29.6 pg (28.0-32.0); Mean Corpuscular Volume 88.9 fL (80.0-100.0); Nucleated Red Blood Cells % 0.0 %
[2025-04-25 12:54] LABS: Chloride 105 mmol/L (98-107); Potassium 3.6 mmol/L (3.5-5.1); Sodium 140 mmol/L (136-145)
[2025-04-25 12:55] LABS: Anion Gap 8 (5-15); Calcium 9.2 mg/dL (8.7-10.4); Carbon Dioxide 27 mmol/L (20-31)
[2025-04-25 13:00] VITALS: BP 155/83; PULSE 63; RESP 16; TEMP 98; O2SAT 100
[2025-04-25 13:00] LABS: BUN/Creatinine Ratio 13.8 (10.0-20.0); Blood Urea Nitrogen 20 mg/dL (9-23); Glucose 190 mg/dL (74-106)
[2025-04-25 13:01] LABS: Magnesium 1.5 mg/dL (1.6-2.6)
[2025-04-25 16:07] VITALS: BP 155/83; PULSE 63; RESP 16; TEMP 98
--- NOTE | 2025-04-25 19:25 | DVHPN2 ---
Progress Note Date Seen: Apr 25, 2025 Medical Necessity Reason Pt with a Central, PICC or Fol: No Objective vital signs Vital Sign Date Time Temp Pulse Resp B/P (MAP) Pulse Ox O2 Delivery O2 Flow Rate FiO2 04/25/25 16:07 98.0 63 16 04/25/25 13:00 155/83 (107) 100 04/24/25 20:00 Room Air* 0 21 Total Intake and Output 04/24/25 04/24/25 04/25/25 15:00 23:00 07:00 Intake Total 150 ml 100 ml 100 ml Output Total 200 ml 220 ml Balance -50 ml -120 ml 100 ml medications Current Medications Medications Dose Ordered Sig/Candida Route Start Time Stop Time Status Last Admin Dose Admin Ceftriaxone Sodium 50 ml @ 100 mls/hr DAILY@09 IV 04/23/25 09:00 04/25/25 08:19 100 MLS/HR Metronidazole 100 ml @ 100 mls/hr Q8HR IV 04/22/25 15:16 04/25/25 13:23 100 MLS/HR Sodium Chloride 1,000 ml @ 75 mls/hr [id number] IV 04/22/25 15:15 04/23/25 04:17 75 MLS/HR Ondansetron HCl 4 mg Q6HPRN PRN IV 04/22/25 15:15 Diagnostic Test (Pha) 1 strip Q6HR 04/22/25 18:00 04/25/25 18:10 1 STRIP Insulin Human Regular Q6HR SC 04/22/25 18:00 04/25/25 13:26 6 UNITS Dextrose 50 ml UD PRN IV 04/22/25 15:30 Pantoprazole Sodium 40 mg DAILY IV 04/22/25 16:15 04/25/25 09:30 40 MG Hydralazine HCl 10 mg Q6HP PRN IV 04/23/25 16:15 04/23/25 16:19 10 MG Gabapentin 200 mg TID PO 04/23/25 22:00 04/25/25 13:22 200 MG Alprazolam 0.25 mg BID PRN PO 04/24/25 05:00 Metoprolol Tartrate 25 mg BID PO 04/23/25 22:00 04/25/25 09:30 25 MG Aspirin 81 mg DAILY PO 04/24/25 10:00 04/25/25 09:30 81 MG Lisinopril 20 mg DAILY PO 04/24/25 10:00 04/24/25 13:27 20 MG Amlodipine Besylate 5 mg DAILY PO 04/24/25 10:00 04/25/25 09:31 5 MG Atorvastatin Calcium 40 mg HS PO 04/23/25 22:00 04/24/25 21:28 40 MG Furosemide 20 mg DAILY PO 04/24/25 10:00 04/25/25 09:32 20 MG laboratory and microbiology Laboratory Tests 04/25/25 12:03 Test 04/25/25 12:03 Range/Units Serum Glucose 190 H 74-106 mg/dL Microbiology Date/Time Source Procedure Growth Status 04/22/25 09:25 Blood Blood Culture - Preliminary NO GROWTH AFTER 72 HOURS OF INCUBATION. Resulted 04/22/25 06:25 Voided Urine Urine Culture - Final Complete Problem List/Assessment/Plan Problem List/Assessment/Plan AFEBRILE VSS ABD SOFT REDUCIBLE VENTRAL HERNIA SBO RESOLVED ADVANCE DIET MARTY CONSIDER ELECTIVE/EMERGENT VENTRAL HERNIA SURGERY BASED ON ONGOING EVAL CLEARED FOR DISCHARGE Plan discussed with: Other Dietary Evaluation Review Comments: 1) If patient remains NPO > 7 days, consider EN/TPN to meet at least 75% of estimated daily needs 2) Advance to 60g CCHO low residue cardiac diet when medically feasible 3) Refer to outpatient RD/[facility] for diabetes education 4) Follow-up with gastroenterology, cardiology, and nephrology 5) Continue to monitor I&O, labs, and skin integrity Expected Outcomes/Goals: 1) If patient remains NPO > 7 days, consider EN/TPN to meet at least 75% of estimated daily needs 2) Advance to 60g CCHO low residue cardiac diet when medically feasible 3) Refer to outpatient RD/[facility] for diabetes education 4) Follow-up with gastroenterology, cardiology, and nephrology 5) Continue to monitor I&O, labs, and skin integrity KIMBERLEE DUNNE MD Apr 25, 2025 19:25
== END 2025-04-25 20:10 | disposition home or self-care (01) | DRG 393 ==
LOC: ER 05:52 → EDBD 05:52 → OVERFLOW 14:43 → EAST 17:25
PROVIDERS: ADMIT Hospitalist; ATTEND Hospitalist
PROC: 0DH673Z Insertion of Infusion Device into Stomach, Via Natural or Artificial Opening (ICD-10-PCS; principal; 2025-04-22)
DX: K43.6 Other and unspecified ventral hernia with obstruction, without gangrene (principal); N17.0 Acute kidney failure with tubular necrosis; E87.1 Hypo-osmolality and hyponatremia; I42.9 Cardiomyopathy, unspecified; N39.0 Urinary tract infection, site not specified; I50.22 Chronic systolic (congestive) heart failure; I08.0 Rheumatic disorders of both mitral and aortic valves; I11.0 Hypertensive heart disease with heart failure; K21.9 Gastro-esophageal reflux disease without esophagitis; E78.5 Hyperlipidemia, unspecified; E86.0 Dehydration; F41.9 Anxiety disorder, unspecified; G62.9 Polyneuropathy, unspecified; Z88.5 Allergy status to narcotic agent; Z83.3 Family history of diabetes mellitus; Z82.61 Family history of arthritis; Z82.49 Family history of ischemic heart disease and other diseases of the circulatory system; Z90.49 Acquired absence of other specified parts of digestive tract
CPT/HCPCS: 36415; 74176; 74250; 80048; 80053; 81001; 82962; 83036; 83605; 83735; 83880; 85025; 87040; 87086; 93005; 93306; 96365; 96375; 99291; 99292; G0378; J1815; J2405; J2470; J3490